=== PATIENT | female | born 2000 | race Caucasian/White ===

== ENCOUNTER → 2018-03-10 | Outpatient (CLI) | payer MEDICAID ==
[~2018-03-10] MED LIST: ERYTOIN10 LEFT EYE; Z.0.NO CURRENT MEDS
== END ==
LOC: HPND 11:42
PROVIDERS: ATTEND Obstetrics & Gynecology
DX: Z36.2 Encounter for other antenatal screening follow-up (principal)
CPT/HCPCS: 76805